=== PATIENT | female | born 1995 | race Caucasian/White ===

== ENCOUNTER 2022-05-29 16:59 | Outpatient (REF) | payer OTHER, SELFPAY ==
[2022-05-29 17:43] LABS: Influenza A PCR NEGATIVE (Negative); Influenza B PCR NEGATIVE (Negative); Resp Syncy Virus RNA Qual PCR NEGATIVE (Negative); SARS COV2 PCR INHOUSE NEGATIVE (Negative)
== END 2022-05-29 17:00 | disposition home or self-care (01) ==
LOC: HO.LNP 16:59
PROVIDERS: Visit Provider Physician Assistant
DX: Z20.822 Contact with and (suspected) exposure to COVID-19 (principal); J02.9 Acute pharyngitis, unspecified; H92.02 Otalgia, left ear
CPT/HCPCS: 0241U